=== PATIENT | female | born 1940 | race Two or more races ===

== ENCOUNTER 2018-07-03 18:55 | Emergency (ER) | payer OTHER ==
[~2018-07-03] VITALS: Ht 165.1 cm; Wt 69.9 kg
[2018-07-03] MEDS ORDERED: METOPROLOL SUCC50 MG (21:23)
[2018-07-03] MEDS ORDERED: SYNTHROID (21:24)
[2018-07-03] MEDS ORDERED: CLONAZEPAM0.5 MG (21:28)
[2018-07-03] MEDS ORDERED: CELEXA40 MG (21:28)
[2018-07-03] MEDS ORDERED: LIPITOR20 MG (21:29)
== END 2018-07-04 10:40 | disposition home or self-care (01) ==
LOC: ER 18:55
DX: I47.1 Supraventricular tachycardia (principal); J84.10 Pulmonary fibrosis, unspecified; I10 Essential (primary) hypertension; E03.8 Other specified hypothyroidism; J45.998 Other asthma; F06.4 Anxiety disorder due to known physiological condition

== ENCOUNTER 2018-11-14 00:51 | Emergency (ER) | payer OTHER ==
[~2018-11-14] VITALS: Ht 167.6 cm; Wt 69.4 kg
[~2018-11-14 00:51] MED LIST: CELEXA40 MG; CLONAZEPAM0.5 MG; LIPITOR20 MG; METOPROLOL SUCC50 MG; SYNTHROID
== END 2018-11-14 09:15 | disposition home or self-care (01) ==
LOC: ER 00:51 → CPU-OBS 00:56 → ER 00:56
DX: R07.89 Other chest pain (principal); R00.2 Palpitations

== ENCOUNTER 2021-04-18 18:31 | Emergency (ER) | payer OTHER ==
[~2021-04-18] VITALS: Ht 165.1 cm; Wt 76.2 kg
[2021-04-18] MEDS ORDERED: VERAPAMIL HCL40 MG (18:44)
[2021-04-18] MEDS ORDERED: MEMANTINE HCL10 GM (18:44)
[2021-04-18] MEDS ORDERED: MYCOPHENOLATE500 M1 (18:44)
[2021-04-18] MEDS ORDERED: ESTAZOLAM1 MG (18:45)
[2021-04-18] MEDS ORDERED: NORFLEX100MG PO (21:31)
[2021-04-18] MEDS ORDERED: KETO10TA2 PO (21:31)
[2021-04-18] MEDS ORDERED: CIPROFLOXACIN500 MG PO (21:31)
[2021-04-18] MEDS ORDERED: CIPRO500 MG PO (21:33)
== END 2021-04-18 22:27 | disposition home or self-care (01) ==
LOC: ER 18:31
DX: R51.9 Headache, unspecified (principal); R41.82 Altered mental status, unspecified

== ENCOUNTER 2022-11-25 19:44 | Emergency (ER) | payer OTHER ==
[~2022-11-25] VITALS: Ht 165.1 cm; Wt 78.0 kg
[~2022-11-25 19:44] MED LIST changes: +CIPRO500 MG PO; +CIPROFLOXACIN500 MG PO; +ESTAZOLAM1 MG; +KETO10TA2 PO; +MEMANTINE HCL10 GM; +MYCOPHENOLATE500 M1; +NORFLEX100MG PO; +VERAPAMIL HCL40 MG
== END 2022-11-26 01:49 | disposition home or self-care (01) ==
LOC: ER 19:44
DX: R10.32 Left lower quadrant pain (principal); K57.30 Diverticulosis of large intestine without perforation or abscess without bleeding; Z88.0 Allergy status to penicillin; K57.32 Diverticulitis of large intestine without perforation or abscess without bleeding

== ENCOUNTER 2022-12-15 21:01 | Emergency (ER) | payer OTHER ==
[~2022-12-15] VITALS: Ht 165.1 cm; Wt 78.5 kg
[2022-12-15] MEDS ORDERED: NORVASC5 MG PO (21:41)
[2022-12-15] MEDS ORDERED: WELLBUTRIN SR100 MG PO (21:42)
[2022-12-15] MEDS ORDERED: ATORVASTATIN CA20 MG PO (21:42)
[2022-12-15] MEDS ORDERED: METOPROLOL SUCC50 MG PO (21:42)
[2022-12-15] MEDS ORDERED: MEMANTINE HCL10 MG PO (21:43)
[2022-12-15] MEDS ORDERED: COZAAR25 MG PO (21:43)
[2022-12-15] MEDS ORDERED: FLECAINIDE ACET50 MG PO (21:43)
== END 2022-12-16 01:10 | disposition home or self-care (01) ==
LOC: ER 21:01
DX: R10.2 Pelvic and perineal pain (principal); N39.0 Urinary tract infection, site not specified; I10 Essential (primary) hypertension; E03.9 Hypothyroidism, unspecified; Z88.0 Allergy status to penicillin; N20.0 Calculus of kidney

== ENCOUNTER 2023-10-26 11:36 | Emergency (ER) | payer OTHER ==
[~2023-10-26] VITALS: Ht 152.4 cm; Wt 77.1 kg
[~2023-10-26 11:36] MED LIST changes: +ATORVASTATIN CA20 MG PO; +COZAAR25 MG PO; +FLECAINIDE ACET50 MG PO; +MEMANTINE HCL10 MG PO; +METOPROLOL SUCC50 MG PO; +NORVASC5 MG PO; +WELLBUTRIN SR100 MG PO
[2023-10-26] MEDS ORDERED: SYNTHROID200 MCG PO (12:00)
[2023-10-26] MEDS ORDERED: 0.9 % SODIUM CHLORIDE 1,000 ML IV SCH (12:30)
[2023-10-26 12:41] LABS: HEMATOCRIT 40.1 % (36.0-45.00); HEMOGLOBIN 13.3 g/dL (12.0-15.00); MEAN CELL VOLUME 83.2 fL (80.00-100.00); MEAN CORPUSCULAR HEMOGLOBIN 27.5 pg (27.00-32.0); MEAN CORPUSCULAR HGB CONC 33.1 g/dl (32.0-36.0); PLATELET COUNT 259 K/uL (150-450); RED BLOOD COUNT 4.82 M/uL (4.00-6.00); RED CELL DISTRIBUTION WIDTH 15.6 % (11.5-14.5)
[2023-10-26 13:21] LABS: URINE APPEARANCE Clear; URINE BILIRRUBIN Negative (NEGATIVE); URINE BLOOD Negative; URINE COLOR Yellow; URINE GLUCOSE Negative (NEGATIVE); URINE LEUKOCYTE Small; URINE NITRATE Negative; URINE PROTEIN Negative (NEGATIVE); URINE UROBILINOGEN 0.2 E.U./dl
[2023-10-26 13:25] LABS: URINE BACTERIA 144.8 uL (0.0-1933); URINE EPITHELIAL CELLS 31.3 uL (0.0-38.8); URINE RBC 2.4 uL (0.0-20.8); URINE WBC 13.7 uL (0.0-23.2)
[2023-10-26 13:25] LABS: CALCIUM 9.3 mg/dL (8.5-10.1); CREATININE SERUM 1.1 mg/dL (0.55-1.02); GFR 47.55; POTASSIUM 4.49 mEq/L (3.5-5.1)
[2023-10-26] MEDS ORDERED: FAMOTIDINE/PF 20 MG in 0.9 % SODIUM CHLORIDE 8 ML IV PUSH STA ×2 (16:06→20:29)
[2023-10-26] MEDS ORDERED: HYOSCYAMINE SULFATE 0.125 MG TAB.SUBL SL ONE (16:15)
[2023-10-26] MEDS ORDERED: KETOROLAC TROMETHAMINE 30 MG VIAL IV ONE (20:30)
[2023-10-26] MEDS ORDERED: PEPCID AC20 MG PO (20:31)
[2023-10-26] MEDS ORDERED: LEVSIN/SL0.125 MG SL (20:31)
[2023-10-26] MEDS ORDERED: METRONIDAZOLE500 MG PO (20:31)
== END 2023-10-26 20:34 | disposition home or self-care (01) ==
LOC: ER 11:36
PROVIDERS: Emergency Medicine
DX: K52.9 Noninfective gastroenteritis and colitis, unspecified (principal); R10.9 Unspecified abdominal pain; I10 Essential (primary) hypertension; E03.8 Other specified hypothyroidism; Z88.0 Allergy status to penicillin
CPT/HCPCS: 36415; 74177; 96365; 96366; 99284; J1885; J3490 ×2; J7030; Q9965

== ENCOUNTER 2023-11-08 22:25 | Emergency (ER) | payer OTHER ==
[~2023-11-08] VITALS: Ht 165.1 cm; Wt 63.5 kg
[~2023-11-08 22:25] MED LIST changes: +LEVSIN/SL0.125 MG SL; +METRONIDAZOLE500 MG PO; +PEPCID AC20 MG PO; +SYNTHROID200 MCG PO
[2023-11-08] MEDS ORDERED: ZETIA10 MG PO (22:38)
[2023-11-08] MEDS ORDERED: RIVASTIGMINE1 EACH TD (22:38)
[2023-11-08] MEDS ORDERED: LABETALOL HCL 100 MG/20 ML ML IV ONE (23:15)
[2023-11-08] MEDS ORDERED: NITROGLYCERIN 0.2 MG/HR PATCH.TD24 TD ONE (23:15)
[2023-11-08 23:29] LABS: HEMATOCRIT 36.5 % (36.0-45.00); HEMOGLOBIN 12.4 g/dL (12.0-15.00); MEAN CELL VOLUME 83.7 fL (80.00-100.00); MEAN CORPUSCULAR HEMOGLOBIN 28.5 pg (27.00-32.0); MEAN CORPUSCULAR HGB CONC 34.1 g/dl (32.0-36.0); PLATELET COUNT 248 K/uL (150-450); RED BLOOD COUNT 4.36 M/uL (4.00-6.00); RED CELL DISTRIBUTION WIDTH 15.1 % (11.5-14.5)
[2023-11-08 23:48] LABS: CREATININE SERUM 1.37 mg/dL (0.55-1.02); GFR 36.91; POTASSIUM 4.51 mEq/L (3.5-5.1)
[2023-11-09] LABS: PH,URINE 6.5 (5.0-8.0); URINE APPEARANCE Clear; URINE BILIRRUBIN Negative (NEGATIVE); URINE BLOOD Negative; URINE COLOR Yellow; URINE GLUCOSE Negative (NEGATIVE); URINE LEUKOCYTE Large; URINE NITRATE Negative; URINE PROTEIN Negative (NEGATIVE); URINE UROBILINOGEN 0.2 E.U./dl
[2023-11-09 00:03] LABS: URINE BACTERIA 966.2 uL (0.0-1933); URINE EPITHELIAL CELLS 36.1 uL (0.0-38.8); URINE WBC 201.4 uL (0.0-23.2)
[2023-11-09 00:08] LABS: URINE RBC 0.7 uL (0.0-20.8)
== END 2023-11-09 02:06 | disposition home or self-care (01) ==
LOC: ER 22:25
PROVIDERS: General Practice
DX: R07.89 Other chest pain (principal); I10 Essential (primary) hypertension; G30.9 Alzheimer's disease, unspecified; F02.80 Dementia in other diseases classified elsewhere, unspecified severity, without behavioral disturbance, psychotic disturbance, mood disturbance, and anxiety; Z88.0 Allergy status to penicillin
CPT/HCPCS: 36415; 71045; 93005; 93041; 96365; 99284; J3490

== ENCOUNTER 2024-02-21 18:13 | Emergency (ER) | payer OTHER ==
[~2024-02-21] VITALS: Ht 165.1 cm; Wt 68.9 kg
[~2024-02-21 18:13] MED LIST changes: +RIVASTIGMINE1 EACH TD; +ZETIA10 MG PO
[2024-02-21] MEDS ORDERED: 0.9 % SODIUM CHLORIDE 1,000 ML IV STA (22:12)
[2024-02-21] MEDS ORDERED: ONDANSETRON HCL 2 MG/ML VIAL IV ONE (22:15)
[2024-02-21] MEDS ORDERED: FAMOTIDINE/PF 20 MG/2 ML VIAL IV ONE (22:15)
[2024-02-21 23:22] LABS: HEMOGLOBIN 12.3 g/dL (12.0-15.00); MEAN CELL VOLUME 82.7 fL (80.00-100.00); MEAN CORPUSCULAR HEMOGLOBIN 28.3 pg (27.00-32.0); MEAN CORPUSCULAR HGB CONC 34.2 g/dl (32.0-36.0); PLATELET COUNT 200 K/uL (150-450); RED BLOOD COUNT 4.35 M/uL (4.00-6.00); RED CELL DISTRIBUTION WIDTH 13.7 % (11.5-14.5)
[2024-02-21 23:46] LABS: INR 1.32; PARTIAL THROMBOPLASTIN TIME 32.2 SECONDS (22.0-34.0); PROTHROMBIN TIME 13.6 SECONDS (9.0-11.5)
[2024-02-21 23:52] LABS: ALBUMIN 3.1 gm/dL (3.4-5.0); BILIRUBIN TOTAL 0.38 mg/dL (0.3-1.2); CALCIUM 7.7 mg/dL (8.5-10.1); CREATININE SERUM 0.81 mg/dL (0.55-1.02); GFR 67.69; POTASSIUM 3.86 mEq/L (3.5-5.1); TOTAL PROTEIN 6.1 gm/dL (6.4-8.2)
[2024-02-22 00:03] LABS: URINE APPEARANCE Clear; URINE BILIRRUBIN Negative (NEGATIVE); URINE BLOOD Negative; URINE COLOR Yellow; URINE GLUCOSE Negative (NEGATIVE); URINE LEUKOCYTE Trace; URINE NITRATE Negative; URINE PROTEIN Trace (NEGATIVE); URINE UROBILINOGEN 0.2 E.U./dl
[2024-02-22 00:07] LABS: URINE BACTERIA 144.8 uL (0.0-1933); URINE RBC 8.3 uL (0.0-20.8); URINE WBC 10.8 uL (0.0-23.2)
== END 2024-02-22 04:44 | disposition home or self-care (01) ==
LOC: ER 18:13
PROVIDERS: Emergency Medicine
DX: K21.9 Gastro-esophageal reflux disease without esophagitis (principal); R14.3 Flatulence; R14.1 Gas pain; R14.2 Eructation; Z88.0 Allergy status to penicillin
CPT/HCPCS: 36415; 74177; 93005; 96372; 99284; J2405; J3490; J7030; Q9965

== ENCOUNTER 2025-04-07 12:36 | Emergency (ER) | payer OTHER ==
[~2025-04-07] VITALS: Ht 162.6 cm; Wt 68.9 kg
[2025-04-07] MEDS ORDERED: ZOLOFT25 MG PO (13:25)
[2025-04-07] MEDS ORDERED: CRESTOR40 MG PO (13:26)
[2025-04-07] MEDS ORDERED: SYNTHROID200 MCG (13:27)
== END 2025-04-07 15:54 | disposition home or self-care (01) ==
LOC: ER 12:36
DX: G89.11 Acute pain due to trauma (principal); R51.9 Headache, unspecified; I10 Essential (primary) hypertension; Z88.0 Allergy status to penicillin

== ENCOUNTER 2025-04-28 22:01 | Emergency (ER) | payer OTHER ==
[~2025-04-28] VITALS: Ht 162.6 cm; Wt 69.9 kg
[~2025-04-28 22:01] MED LIST changes: +CRESTOR40 MG PO; +SYNTHROID200 MCG; +ZOLOFT25 MG PO
[2025-04-29] MEDS ORDERED: ONDANSETRON 4 MG TAB.RAPDIS PO STA (02:56)
[2025-04-29] MEDS ORDERED: ONDANSETRON ODT4 MG PO (03:00)
== END 2025-04-29 03:11 ==
LOC: ER 22:01
DX: S09.8XXA Other specified injuries of head, initial encounter (principal); W18.39XA Other fall on same level, initial encounter; Y93.89 Activity, other specified; Y92.89 Other specified places as the place of occurrence of the external cause; Z88.0 Allergy status to penicillin

== ENCOUNTER 2025-04-29 16:14 | Inpatient (IN) | payer OTHER ==
[~2025-04-29] VITALS: Ht 167.6 cm; Wt 68.0 kg
[~2025-04-29 16:14] MED LIST changes: +ONDANSETRON ODT4 MG PO
[2025-04-29] MEDS ORDERED: METRONIDAZOLE/SODIUM CHLORIDE 500 MG/100 ML PIGGYBACK IV ONE ×2 (20:30→21:02)
[2025-04-29] MEDS ORDERED: 0.9 % SODIUM CHLORIDE 500 ML IV ONE (20:30)
[2025-04-29] MEDS ORDERED: CIPROFLOXACIN IN 5 % DEXTROSE 400 MG/200 ML PIGGYBAG IV ONE ×2 (20:30→21:02)
[2025-04-29 21:30] VITALS: BP 115/56
[2025-04-29] MEDS ORDERED: 0.9 % SODIUM CHLORIDE 1,000 ML IV SCH (21:30)
[2025-04-29] MEDS ORDERED: FAMOTIDINE/PF 20 MG in 0.9 % SODIUM CHLORIDE 8 ML IV PUSH SCH (21:34)
[2025-04-29] MEDS ORDERED: 0.9 % SODIUM CHLORIDE 1,000 ML IV ONE (21:45)
[2025-04-29] MEDS ORDERED: ONDANSETRON HCL 4 MG in 0.9 % SODIUM CHLORIDE 50 ML IV PRN (21:45)
[2025-04-29] MEDS ORDERED: hydrALAZINE HCL 20 MG VIAL IV PRN (21:45)
[2025-04-29] MEDS ORDERED: FAMOTIDINE/PF 20 MG/2 ML VIAL ONE (23:13)
[2025-04-29 23:52] VITALS: BP 115/56; O2SAT 98
[2025-04-30] LABS: URINE APPEARANCE Cloudy; URINE BILIRRUBIN Moderate (NEGATIVE); URINE BLOOD Negative; URINE COLOR Orange; URINE GLUCOSE Negative (NEGATIVE); URINE KETONE Trace (NEGATIVE); URINE LEUKOCYTE Small; URINE NITRATE Positive; URINE PROTEIN Trace (NEGATIVE); URINE UROBILINOGEN 1.0 E.U./dl
[2025-04-30 00:03] LABS: URINE BACTERIA 173.9 uL (0.0-1933); URINE EPITHELIAL CELLS 125.3 uL (0.0-38.8); URINE RBC 44.4 uL (0.0-20.8); URINE WBC 9.0 uL (0.0-23.2)
[2025-04-30 00:11] LABS: INR 1.47
[2025-04-30 00:16] LABS: URINE CAST > 21.83 uL (0.0-1.40)
[2025-04-30 00:18] LABS: URINE CRYSTALS FEW /HPF
[2025-04-30] MEDS ORDERED: LEVOTHYROXINE SODIUM 200 MCG TABLET PO ONE (03:16)
[2025-04-30 05:00] VITALS: BP 126/70; O2SAT 96
[2025-04-30] MEDS ORDERED: LEVOTHYROXINE SODIUM 200 MCG TABLET PO SCH (06:00)
[2025-04-30 08:27] VITALS: BP 132/72
[2025-04-30] MEDS ORDERED: CIPROFLOXACIN IN 5 % DEXTROSE 200 ML IV SCH (09:00)
[2025-04-30] MEDS ORDERED: ENOXAPARIN SODIUM 30 MG/0.3 ML SYRINGE SUBCUTANEO SCH (09:00)
[2025-04-30 10:30] LABS: BASO % 0.8 % (0.1-1.2); EOS # 0.05 (0.04-0.54); EOS % 0.3 % (0.7-7.0); LYMPH # 0.73 (1.18-3.74); LYMPH % 3.8 % (19.3-53.1); MEAN PLATELET VOLUME 9.60 fl (9.4-12.4); MONO # 1.72 (0.24-0.82); MONO % 9.0 % (4.7-12.5); NEUT # 16.26 (1.56-6.13); NEUT % 85.3 % (34.0-71.1); RED CELL DISTRIBUTION WIDTH 13.1 % (11.6-14.4)
[2025-04-30 11:14] LABS: BUN CREA RATIO 34.0 (7.0-25.0); CREATININE SERUM 1.82 mg/dL (0.55-1.02); GFR 26.53; GLUCOSE FASTING 78.0 mg/dL (65-100); OSMOLALITY SERUM 294.0 MOSM/KG (275-295)
[2025-04-30] MEDS ORDERED: MEROPENEM 500 MG/VIAL VIAL IV SCH (13:00)
[2025-04-30] MEDS ORDERED: DEXTROSE 5 % AND 0.9 % NACL 1,000 ML IV SCH (14:15)
[2025-04-30] MEDS ORDERED: KETOROLAC TROMETHAMINE 30 MG VIAL IV PRN (17:15)
[2025-04-30 18:13] VITALS: BP 135/64
[2025-05-01 02:11] VITALS: BP 111/53; O2SAT 94
[2025-05-01 04:55] LABS: BASO % 0.0 % (0.1-1.2); EOS # 0.00 (0.04-0.54); EOS % 0.0 % (0.7-7.0); LYMPH # 0.52 (1.18-3.74); LYMPH % 3.0 % (19.3-53.1); MEAN PLATELET VOLUME 10.00 fl (9.4-12.4); MONO # 1.13 (0.24-0.82); MONO % 6.4 % (4.7-12.5); NEUT # 15.93 (1.56-6.13); NEUT % 90.5 % (34.0-71.1); RED CELL DISTRIBUTION WIDTH 13.2 % (11.6-14.4)
[2025-05-01 06:07] LABS: ALT/SGPT 31.0 U/L (12-78); AST/SGOT 29.0 U/L (15-37); BILIRUBIN TOTAL 0.37 mg/dL (0.3-1.2); BUN CREA RATIO 32.0 (7.0-25.0); CREATININE SERUM 1.79 mg/dL (0.55-1.02); GFR 27.04; GLOBULINA 2.7 G/DL (2.4-3.5); GLUCOSE FASTING 99.0 mg/dL (65-100); OSMOLALITY SERUM 299.0 MOSM/KG (275-295)
[2025-05-01 09:06] VITALS: BP 126/65; O2SAT 97
[2025-05-01 16:00] VITALS: BP 143/75; O2SAT 97
[2025-05-01] MEDS ORDERED: DEXTROSE 5 % AND 0.9 % NACL 1,000 ML IV SCH (16:00)
[2025-05-01] MEDS ORDERED: VANCOMYCIN HCL 5 MG/ML REDILUIDO IV SCH (17:00)
[2025-05-02 02:31] VITALS: BP 134/71; O2SAT 96
[2025-05-02 07:39] LABS: BASO % 0.5 % (0.1-1.2); EOS # 0.02 (0.04-0.54); EOS % 0.1 % (0.7-7.0); LYMPH # 0.73 (1.18-3.74); LYMPH % 3.7 % (19.3-53.1); MEAN PLATELET VOLUME 10.40 fl (9.4-12.4); MONO # 1.46 (0.24-0.82); MONO % 7.3 % (4.7-12.5); NEUT # 17.29 (1.56-6.13); NEUT % 86.7 % (34.0-71.1); RED CELL DISTRIBUTION WIDTH 13.3 % (11.6-14.4)
[2025-05-02 07:50] LABS: ALT/SGPT 37.0 U/L (12-78); AST/SGOT 51.0 U/L (15-37); BILIRUBIN TOTAL 0.37 mg/dL (0.3-1.2); BUN CREA RATIO 36.0 (7.0-25.0); CREATININE SERUM 1.29 mg/dL (0.55-1.02); GFR 39.47; GLOBULINA 2.9 G/DL (2.4-3.5); GLUCOSE FASTING 74.0 mg/dL (65-100); OSMOLALITY SERUM 301.0 MOSM/KG (275-295)
[2025-05-02 07:52] LABS: BUN CREA RATIO 35.0 (7.0-25.0); CREATININE SERUM 1.29 mg/dL (0.55-1.02); GFR 39.47; GLUCOSE FASTING 77.0 mg/dL (65-100); OSMOLALITY SERUM 301.0 MOSM/KG (275-295)
[2025-05-02 08:59] VITALS: BP 134/72; O2SAT 97
[2025-05-02 18:07] VITALS: BP 144/83; O2SAT 98
[2025-05-02] MEDS ORDERED: CLONAZEPAM 0.5 MG TABLET PO PRN (21:30)
[2025-05-02] MEDS ORDERED: LEVALBUTEROL HCL 0.63 MG/3 ML SOLUTION IH SCH (21:39)
[2025-05-02] MEDS ORDERED: POTASSIUM CHLORIDE 20MEQ/100ML H2O PB IV ONE (21:45)
[2025-05-03 02:15] VITALS: BP 148/72; O2SAT 98
[2025-05-03 08:42] LABS: URINE APPEARANCE Clear; URINE BILIRRUBIN Negative (NEGATIVE); URINE BLOOD Moderate; URINE COLOR Yellow; URINE GLUCOSE Negative (NEGATIVE); URINE KETONE Trace (NEGATIVE); URINE LEUKOCYTE Negative; URINE NITRATE Negative; URINE UROBILINOGEN 0.2 E.U./dl
[2025-05-03 08:45] LABS: URINE BACTERIA 33.6 uL (0.0-1933); URINE EPITHELIAL CELLS 25.2 uL (0.0-38.8); URINE RBC 248.5 uL (0.0-20.8); URINE WBC 13.0 uL (0.0-23.2)
[2025-05-03 09:21] LABS: URINE CAST 1.17 uL (0.0-1.40); URINE PROTEIN 100 (NEGATIVE)
[2025-05-03 09:58] VITALS: BP 134/75; O2SAT 97
[2025-05-03] MEDS ORDERED: DILTIAZEM HCL 125MG/25ML VIAL IV SCH (17:45)
[2025-05-03 18:32] VITALS: BP 149/75; O2SAT 96
[2025-05-04 02:16] VITALS: BP 157/81; O2SAT 100
[2025-05-04 06:43] LABS: BASO % 0.2 % (0.1-1.2); EOS # 0.05 (0.04-0.54); EOS % 0.2 % (0.7-7.0); LYMPH # 1.42 (1.18-3.74); LYMPH % 7.0 % (19.3-53.1); MEAN PLATELET VOLUME 10.30 fl (9.4-12.4); MONO # 2.37 (0.24-0.82); MONO % 11.7 % (4.7-12.5); NEUT # 15.79 (1.56-6.13); NEUT % 78.2 % (34.0-71.1); RED CELL DISTRIBUTION WIDTH 13.6 % (11.6-14.4)
[2025-05-04 07:12] LABS: BUN CREA RATIO 27.0 (7.0-25.0); CREATININE SERUM 0.93 mg/dL (0.55-1.02); GFR 57.58; GLUCOSE FASTING 98.0 mg/dL (65-100); OSMOLALITY SERUM 301.0 MOSM/KG (275-295)
[2025-05-04] MEDS ORDERED: DILTIAZEM HCL 125 MG in 0.9 % SODIUM CHLORIDE 100 ML IV SCH (07:15)
[2025-05-04] MEDS ORDERED: MAGNESIUM SULFATE IN WATER 50 ML IV NR (08:00)
[2025-05-04 08:52] VITALS: BP 120/70; O2SAT 97
[2025-05-04] MEDS ORDERED: PANTOPRAZOLE SODIUM 40 MG/VIAL VIAL IV PUSH SCH ×2 (09:00)
[2025-05-04] MEDS ORDERED: MULTIVIT INFUSN,ADULT 4,VIT K 10 ML VIAL IV SCH (09:00)
[2025-05-04] MEDS ORDERED: POTASSIUM CHLORIDE IN WATER 40 MEQ/100 ML PIGGYBAG IV SCH (10:00)
[2025-05-04 15:57] VITALS: BP 147/77
[2025-05-04] MEDS ORDERED: VANCOMYCIN HCL 5 MG/ML REDILUIDO IV SCH (17:00)
[2025-05-05 02:03] VITALS: BP 158/78; O2SAT 98
[2025-05-05 06:49] LABS: BASO % 0.5 % (0.1-1.2); EOS # 0.14 (0.04-0.54); EOS % 0.8 % (0.7-7.0); LYMPH # 1.54 (1.18-3.74); LYMPH % 8.6 % (19.3-53.1); MEAN PLATELET VOLUME 10.30 fl (9.4-12.4); MONO # 1.63 (0.24-0.82); MONO % 9.1 % (4.7-12.5); NEUT # 13.98 (1.56-6.13); NEUT % 78.4 % (34.0-71.1); RED CELL DISTRIBUTION WIDTH 14.1 % (11.6-14.4)
[2025-05-05 07:16] LABS: ALT/SGPT 35.0 U/L (12-78); AST/SGOT 40.0 U/L (15-37); BILIRUBIN TOTAL 0.48 mg/dL (0.3-1.2); BUN CREA RATIO 33.0 (7.0-25.0); CREATININE SERUM 0.78 mg/dL (0.55-1.02); GFR 70.53; GLOBULINA 3.0 G/DL (2.4-3.5); GLUCOSE FASTING 114.0 mg/dL (65-100); LDH 418.0 U/L (84-246)
[2025-05-05 07:23] LABS: OSMOLALITY SERUM 304.0 MOSM/KG (275-295)
[2025-05-05 11:07] VITALS: BP 149/77; O2SAT 96
[2025-05-05 16:39] VITALS: BP 135/74
[2025-05-06 01:50] VITALS: BP 153/71; O2SAT 100
[2025-05-06 09:03] VITALS: BP 137/67; O2SAT 98
[2025-05-06] MEDS ORDERED: SODIUM CHLORIDE 0.45 % 1,000 ML IV SCH (10:15)
[2025-05-06] MEDS ORDERED: POTASSIUM PHOS,M-BASIC-D-BASIC 18 MM in 0.9 % SODIUM CHLORIDE 250 ML IV ONE (11:00)
[2025-05-06] MEDS ORDERED: LEVOTHYROXINE SODIUM 100 MCG/VIAL VIAL IV SCH (12:00)
[2025-05-06 16:05] LABS: BASO % 0.2 % (0.1-1.2); EOS # 0.15 (0.04-0.54); EOS % 1.2 % (0.7-7.0); LYMPH # 1.38 (1.18-3.74); LYMPH % 11.3 % (19.3-53.1); MEAN PLATELET VOLUME 10.30 fl (9.4-12.4); MONO # 0.95 (0.24-0.82); MONO % 7.8 % (4.7-12.5); NEUT # 9.35 (1.56-6.13); NEUT % 76.6 % (34.0-71.1); RED CELL DISTRIBUTION WIDTH 14.3 % (11.6-14.4)
[2025-05-06 16:39] LABS: ALT/SGPT 27.0 U/L (12-78); AST/SGOT 23.0 U/L (15-37); BILIRUBIN TOTAL 0.52 mg/dL (0.3-1.2); BUN CREA RATIO 25.0 (7.0-25.0); CREATININE SERUM 0.68 mg/dL (0.55-1.02); GFR 82.63; GLOBULINA 3.0 G/DL (2.4-3.5); GLUCOSE FASTING 85.0 mg/dL (65-100); OSMOLALITY SERUM 297.0 MOSM/KG (275-295)
[2025-05-06 16:45] VITALS: BP 158/74
[2025-05-06] MEDS ORDERED: MEROPENEM 500 MG/VIAL VIAL IV SCH (20:00)
[2025-05-07 03:18] VITALS: BP 134/68; O2SAT 98
[2025-05-07 09:43] VITALS: BP 147/69; O2SAT 99
[2025-05-07 16:35] VITALS: BP 141/67
[2025-05-08 03:21] VITALS: BP 154/65
[2025-05-08 10:09] VITALS: BP 147/72; O2SAT 98
[2025-05-08] MEDS ORDERED: CLOTRIMAZOLE 10 MG TROCHE MM SCH (13:00)
[2025-05-08 17:53] VITALS: BP 146/76
[2025-05-09 03:44] VITALS: BP 147/61; O2SAT 98
[2025-05-09 07:24] LABS: BASO % 0.5 % (0.1-1.2); EOS # 0.16 (0.04-0.54); EOS % 1.2 % (0.7-7.0); LYMPH # 1.16 (1.18-3.74); LYMPH % 8.9 % (19.3-53.1); MEAN PLATELET VOLUME 10.60 fl (9.4-12.4); MONO # 0.63 (0.24-0.82); MONO % 4.9 % (4.7-12.5); NEUT # 10.72 (1.56-6.13); NEUT % 82.6 % (34.0-71.1); RED CELL DISTRIBUTION WIDTH 13.9 % (11.6-14.4)
[2025-05-09 07:34] LABS: ALT/SGPT 19.0 U/L (12-78); AST/SGOT 21.0 U/L (15-37); BILIRUBIN TOTAL 0.52 mg/dL (0.3-1.2); BUN CREA RATIO 16.0 (7.0-25.0); CREATININE SERUM 0.63 mg/dL (0.55-1.02); GFR 90.25; GLOBULINA 2.6 G/DL (2.4-3.5); GLUCOSE FASTING 72.0 mg/dL (65-100); OSMOLALITY SERUM 279.0 MOSM/KG (275-295)
[2025-05-09 08:33] VITALS: BP 130/67
[2025-05-09] MEDS ORDERED: MAGNESIUM SULFATE IN WATER 2 GM/50 ML PIGGYBAG IV NR (11:00)
[2025-05-09] MEDS ORDERED: POTASSIUM CHLORIDE IN WATER 40 MEQ/100 ML PIGGYBAG IV SCH (16:00)
[2025-05-09] MEDS ORDERED: POTASSIUM PHOS,M-BASIC-D-BASIC 18 MM in 0.9 % SODIUM CHLORIDE 250 ML IV ONE (16:00)
[2025-05-09] MEDS ORDERED: LACTOBACILLUS ACIDOPHILUS 1 CAP CAP PO SCH (17:00)
[2025-05-09] MEDS ORDERED: DILTIAZEM HCL 30 MG TABLET PO SCH (17:01)
[2025-05-09] MEDS ORDERED: LEVALBUTEROL HCL 0.63 MG/3 ML SOLUTION IH SCH (18:00)
[2025-05-09 18:43] VITALS: BP 125/72
[2025-05-09 21:23] LABS: ALT/SGPT 18.0 U/L (12-78); AST/SGOT 27.0 U/L (15-37); BILIRUBIN TOTAL 0.42 mg/dL (0.3-1.2); BUN CREA RATIO 13.0 (7.0-25.0); CREATININE SERUM 0.75 mg/dL (0.55-1.02); GFR 73.8; GLOBULINA 2.6 G/DL (2.4-3.5); GLUCOSE FASTING 101.0 mg/dL (65-100); OSMOLALITY SERUM 279.0 MOSM/KG (275-295)
[2025-05-10 03:22] VITALS: BP 121/66; O2SAT 99
[2025-05-10 08:26] VITALS: BP 143/75
[2025-05-10] MEDS ORDERED: PANTOPRAZOLE SODIUM 40 MG TABLET.DR PO NR (17:00)
[2025-05-10 19:06] VITALS: BP 150/76
[2025-05-10 19:29] LABS: BASO % 0.5 % (0.1-1.2); EOS # 0.10 (0.04-0.54); EOS % 1.2 % (0.7-7.0); LYMPH # 1.16 (1.18-3.74); LYMPH % 14.1 % (19.3-53.1); MEAN PLATELET VOLUME 10.50 fl (9.4-12.4); MONO # 0.67 (0.24-0.82); MONO % 8.2 % (4.7-12.5); NEUT # 6.12 (1.56-6.13); NEUT % 74.7 % (34.0-71.1); RED CELL DISTRIBUTION WIDTH 14.3 % (11.6-14.4)
[2025-05-10] MEDS ORDERED: DILTIAZEM HCL 125MG/25ML VIAL IV SCH (19:45)
[2025-05-10] MEDS ORDERED: PANTOPRAZOLE SODIUM 40 MG/VIAL VIAL IV PUSH ONE (19:45)
[2025-05-10 19:56] LABS: ALT/SGPT 17.0 U/L (12-78); AST/SGOT 23.0 U/L (15-37); BILIRUBIN TOTAL 0.32 mg/dL (0.3-1.2); BUN CREA RATIO 10.0 (7.0-25.0); CREATININE SERUM 0.91 mg/dL (0.55-1.02); GFR 59.04; GLOBULINA 2.8 G/DL (2.4-3.5); GLUCOSE FASTING 123.0 mg/dL (65-100); OSMOLALITY SERUM 283.0 MOSM/KG (275-295)
[2025-05-11 02:30] VITALS: BP 138/70; O2SAT 97
[2025-05-11] MEDS ORDERED: LEVOTHYROXINE SODIUM 200 MCG TABLET PO SCH (06:00)
[2025-05-11] MEDS ORDERED: DILTIAZEM HCL 125 MG in 0.9 % SODIUM CHLORIDE 100 ML IV SCH (07:00)
[2025-05-11 08:54] VITALS: BP 150/72; O2SAT 98
[2025-05-11] MEDS ORDERED: PANTOPRAZOLE SODIUM 40 MG TABLET.DR PO SCH (09:00)
[2025-05-11 17:28] VITALS: BP 152/83
[2025-05-11 21:54] LABS: ALT/SGPT 15.0 U/L (12-78); AST/SGOT 21.0 U/L (15-37); BILIRUBIN TOTAL 0.32 mg/dL (0.3-1.2); BUN CREA RATIO 8.0 (7.0-25.0); CREATININE SERUM 0.74 mg/dL (0.55-1.02); GFR 74.95; GLOBULINA 2.5 G/DL (2.4-3.5); GLUCOSE FASTING 103.0 mg/dL (65-100); OSMOLALITY SERUM 281.0 MOSM/KG (275-295)
[2025-05-12 01:43] VITALS: BP 160/74; O2SAT 100
[2025-05-12 09:02] VITALS: BP 144/68; O2SAT 100
[2025-05-12] MEDS ORDERED: FF) FLECAINIDE ACETATE 50MG TAB PO SCH ×2 (09:32→10:12)
[2025-05-12] MEDS ORDERED: LOSARTAN POTASSIUM 50 MG TABLET PO SCH (09:34)
[2025-05-12] MEDS ORDERED: PANTOPRAZOLE SODIUM 40 MG/VIAL VIAL IV PUSH SCH (09:34)
[2025-05-12 17:39] VITALS: BP 135/75; O2SAT 99
[2025-05-13 02:49] VITALS: BP 160/74; O2SAT 97
[2025-05-13 07:00] VITALS: BP 138/72; O2SAT 98
[2025-05-13] MEDS ORDERED: AMINO ACIDS/PROTEIN HYDROLYS 30 ML BLIST.PACK PO SCH (13:00)
[2025-05-13 17:15] VITALS: BP 146/69
[2025-05-14 01:20] VITALS: BP 160/80; O2SAT 97
[2025-05-14 08:58] VITALS: BP 127/73; O2SAT 99
[2025-05-14] MEDS ORDERED: METHYLPREDNISOLONE SOD SUCC 40 MG VIAL IV SCH (12:01)
[2025-05-14 17:14] VITALS: BP 152/79
[2025-05-14 21:25] LABS: BASO % 0.4 % (0.1-1.2); EOS # 0.00 (0.04-0.54); EOS % 0.0 % (0.7-7.0); LYMPH # 0.80 (1.18-3.74); LYMPH % 15.9 % (19.3-53.1); MEAN PLATELET VOLUME 9.60 fl (9.4-12.4); MONO # 0.59 (0.24-0.82); MONO % 11.8 % (4.7-12.5); NEUT # 3.59 (1.56-6.13); NEUT % 71.5 % (34.0-71.1); RED CELL DISTRIBUTION WIDTH 14.6 % (11.6-14.4)
[2025-05-14 21:50] LABS: INR 1.21
[2025-05-14 21:54] LABS: ALT/SGPT 16.0 U/L (12-78); AST/SGOT 19.0 U/L (15-37); BILIRUBIN TOTAL 0.22 mg/dL (0.3-1.2); BUN CREA RATIO 18.0 (7.0-25.0); CREATININE SERUM 0.89 mg/dL (0.55-1.02); GFR 60.57; GLOBULINA 2.8 G/DL (2.4-3.5); GLUCOSE FASTING 126.0 mg/dL (65-100); OSMOLALITY SERUM 288.0 MOSM/KG (275-295)
[2025-05-15 01:17] VITALS: BP 144/80; O2SAT 100
[2025-05-15 09:11] VITALS: BP 127/61; O2SAT 100
[2025-05-15 13:08] LABS: COVID-19 AG NEGATIVE (NEGATIVE)
[2025-05-15 19:55] VITALS: BP 137/73; O2SAT 96
[2025-05-16 00:29] VITALS: BP 121/71; O2SAT 97
[2025-05-16 08:39] VITALS: BP 128/72; O2SAT 100
[2025-05-16 17:46] VITALS: BP 144/70; O2SAT 100
[2025-05-17 01:02] VITALS: BP 119/66; O2SAT 97
[2025-05-17 09:15] VITALS: BP 116/65; O2SAT 100
[2025-05-17 17:12] VITALS: BP 145/71; O2SAT 100
[2025-05-17] MEDS ORDERED: IPRATROPIUM BROMIDE 0.5 MG/2.5 ML AMPUL.NEB IH SCH (21:44)
[2025-05-18 01:01] VITALS: BP 129/75; O2SAT 97
[2025-05-18 06:44] LABS: ALT/SGPT 12.0 U/L (12-78); AST/SGOT 15.0 U/L (15-37); BILIRUBIN TOTAL 0.23 mg/dL (0.3-1.2); BUN CREA RATIO 42.0 (7.0-25.0); CREATININE SERUM 0.74 mg/dL (0.55-1.02); GFR 74.95; GLOBULINA 2.7 G/DL (2.4-3.5); GLUCOSE FASTING 87.0 mg/dL (65-100); OSMOLALITY SERUM 287.0 MOSM/KG (275-295)
[2025-05-18 08:53] VITALS: BP 134/80; O2SAT 100
[2025-05-18 17:30] VITALS: BP 121/70
[2025-05-18 23:46] LABS: MONONUCLEAR 79.0 %; POLYMORPHONUCLEAR 21.0 %
[2025-05-19 00:49] LABS: GLU PLEURAL FLUID 100.0 mg/dl; LDH PLEURAL FLUID 89.0 U/L; TP PLEURAL FLUID 1.7 g/dl
[2025-05-19 02:30] VITALS: BP 141/76; O2SAT 99
[2025-05-19 08:19] VITALS: BP 112/65
[2025-05-19] MEDS ORDERED: ALBUMIN HUMAN 100 ML VIAL IV SCH (12:00)
[2025-05-19] MEDS ORDERED: ALBUMIN HUMAN-25 0.25GM/ML (50ML) VIAL IV SCH (12:00)
[2025-05-19 17:10] VITALS: BP 138/81; O2SAT 98
[2025-05-20 02:32] VITALS: BP 142/81; O2SAT 96
[2025-05-20 06:45] LABS: BASO % 0.4 % (0.1-1.2); EOS # 0.06 (0.04-0.54); EOS % 1.3 % (0.7-7.0); LYMPH # 1.35 (1.18-3.74); LYMPH % 28.4 % (19.3-53.1); MEAN PLATELET VOLUME 9.30 fl (9.4-12.4); MONO # 0.53 (0.24-0.82); MONO % 11.2 % (4.7-12.5); NEUT # 2.69 (1.56-6.13); NEUT % 56.6 % (34.0-71.1); RED CELL DISTRIBUTION WIDTH 13.5 % (11.6-14.4)
[2025-05-20 06:58] LABS: BUN CREA RATIO 35.0 (7.0-25.0); CREATININE SERUM 0.77 mg/dL (0.55-1.02); GFR 71.59; GLUCOSE FASTING 103.0 mg/dL (65-100); OSMOLALITY SERUM 283.0 MOSM/KG (275-295)
[2025-05-20 08:44] VITALS: BP 138/57
[2025-05-20] MEDS ORDERED: MAGNESIUM SULFATE/D5W 1GM/100ML PIGGYBAG IV STA (10:48)
[2025-05-20] MEDS ORDERED: IPRATROPIU0.2 MG/1 M IH (10:52)
[2025-05-20] MEDS ORDERED: RIVASTIGMINE1 EACH TD (10:53)
[2025-05-20] MEDS ORDERED: NORVASC5 MG PO (10:53)
[2025-05-20] MEDS ORDERED: FLECAINIDE ACET50 MG PO (10:54)
[2025-05-20] MEDS ORDERED: COZAAR50 MG PO (10:54)
[2025-05-20] MEDS ORDERED: WELLBUTRIN SR100 MG PO (10:55)
[2025-05-20] MEDS ORDERED: CRESTOR40 MG PO (10:55)
[2025-05-20] MEDS ORDERED: ZOLOFT25 MG PO (11:04)
[2025-05-20] MEDS ORDERED: MEMANTINE HCL10 MG PO (11:04)
[2025-05-20] MEDS ORDERED: INTESTINEX680 M1 PO (11:05)
[2025-05-20] MEDS ORDERED: LEVOTHYROXINE200 MCG PO (11:05)
[2025-05-20] MEDS ORDERED: PROTEINEX-18 LI30 ML PO (11:06)
[2025-05-20] MEDS ORDERED: CLOTRIMAZOLE10 MG MM (11:06)
[2025-05-20] MEDS ORDERED: DILTIAZEM HCL30 MG PO (11:08)
[2025-05-20] MEDS ORDERED: PANTOPRAZOLE SO40 MG PO (11:09)
[2025-05-20] MEDS ORDERED: CLONAZEPAM0.5 MG PO (11:09)
[2025-05-20] MEDS ORDERED: POTASSIUM PHOS,M-BASIC-D-BASIC 18 MM in 0.9 % SODIUM CHLORIDE 250 ML IV NR (13:00)
[2025-05-20 19:40] VITALS: BP 146/62
== END 2025-05-20 21:25 | disposition home or self-care (01) | DRG 388 ==
LOC: ER 16:14 → MEDJ 21:59
PROVIDERS: General Practice; Internal Medicine; Internal Medicine Critical Care Medicine; Internal Medicine Infectious Disease; Internal Medicine Nephrology; Radiology Vascular & Interventional Radiology; ADMIT Internal Medicine; ATTEND Internal Medicine
PROC: BW21ZZZ Computerized Tomography (CT Scan) of Abdomen and Pelvis (ICD-10-PCS; principal; 2025-04-29)
PROC: B020ZZZ Computerized Tomography (CT Scan) of Brain (ICD-10-PCS; 2025-04-29)
PROC: BR20ZZZ Computerized Tomography (CT Scan) of Cervical Spine (ICD-10-PCS; 2025-04-29)
PROC: 4A12X4Z Monitoring of Cardiac Electrical Activity, External Approach (ICD-10-PCS; 2025-05-03)
PROC: B246ZZZ Ultrasonography of Right and Left Heart (ICD-10-PCS; 2025-05-04)
PROC: BW21YZZ Computerized Tomography (CT Scan) of Abdomen and Pelvis using Other Contrast (ICD-10-PCS; 2025-05-06)
PROC: BW21ZZZ Computerized Tomography (CT Scan) of Abdomen and Pelvis (ICD-10-PCS; 2025-05-06)
PROC: B54DZZZ Ultrasonography of Bilateral Lower Extremity Veins (ICD-10-PCS; 2025-05-09)
PROC: BW21ZZZ Computerized Tomography (CT Scan) of Abdomen and Pelvis (ICD-10-PCS; 2025-05-13)
PROC: BB24ZZZ Computerized Tomography (CT Scan) of Bilateral Lungs (ICD-10-PCS; 2025-05-16)
PROC: 3E0F7GC Introduction of Other Therapeutic Substance into Respiratory Tract, Via Natural or Artificial Opening (ICD-10-PCS; 2025-05-17)
PROC: 0W993ZZ Drainage of Right Pleural Cavity, Percutaneous Approach (ICD-10-PCS; 2025-05-18)
PROC: 0W9B3ZZ Drainage of Left Pleural Cavity, Percutaneous Approach (ICD-10-PCS; 2025-05-19)
DX: K56.609 Unspecified intestinal obstruction, unspecified as to partial versus complete obstruction (principal); A41.9 Sepsis, unspecified organism; I47.10 Supraventricular tachycardia, unspecified; R65.10 Systemic inflammatory response syndrome (SIRS) of non-infectious origin without acute organ dysfunction; K52.9 Noninfective gastroenteritis and colitis, unspecified; J84.10 Pulmonary fibrosis, unspecified